=== PATIENT | female | born 1965 | race Caucasian/White ===

== ENCOUNTER 2018-02-16 04:48 | Emergency (ER) | payer BC, OTHER ==
[2018-02-16] MEDS ORDERED: KETOROLAC TROMETHAMINE 60 MG/2 ML SDV IM ONE (05:16)
[2018-02-16] MEDS ORDERED: DIAZEPAM INJ 10 MG/2 ML DISP.SYRIN IV ONE (05:16)
--- NOTE | 2018-02-16 05:25 | ER Document Report ---
ED General - General Chief Complaint: Neck and Upper Back Pain Stated Complaint: FALL/NECK PAIN Time Seen by Provider: 02/16/18 05:15 Mode of Arrival: Ambulatory Information source: Patient Notes: Patient is a 52-year-old female who presents with complaints of stiff neck since Monday. Patient reports that she has been taking [id number] Motrin at home which has alleviated her symptoms intermittently. Patient reports that last night at about 1030 she slipped in her bathtub, did not fall but caught herself abruptly and ever since then she has been having worsening stiffness and pain in her neck. Patient denies any other symptoms such as fever or nausea and vomiting. Patient denies any past medical history. Past surgical history of 2 and endometriosis. TRAVEL OUTSIDE OF THE [place] IN LAST 30 DAYS: No - Related Data Allergies/Adverse Reactions: No Known Allergies Allergy (Unverified 02/16/18 04:55) Past Medical History - General Information source: Patient - Social History Smoking Status: Never Smoker Cigarette use (# per day): No Chew tobacco use (# tins/day): No Smoking Education Provided: No Frequency of alcohol use: None Drug Abuse: None Family History: Reviewed & Not Pertinent - Medical History Medical History: Negative Past Surgical History: Reports: Hx Section, Hx Gynecologic Surgery Review of Systems - Review of Systems Constitutional: No symptoms reported EENT: No symptoms reported Cardiovascular: No symptoms reported Respiratory: No symptoms reported Gastrointestinal: No symptoms reported Genitourinary: No symptoms reported Female Genitourinary: No symptoms reported Musculoskeletal: See HPI Skin: No symptoms reported Hematologic/Lymphatic: No symptoms reported Neurological/Psychological: No symptoms reported Physical Exam - Vital signs Vitals: Temp Pulse Resp BP Pulse Ox 97.7 F 72 18 143/84 H 96 02/16/18 04:54 02/16/18 04:54 02/16/18 04:54 02/16/18 04:54 02/16/18 04:54 - Notes Notes: PHYSICAL EXAMINATION: GENERAL: Well-appearing, well-nourished and in no acute distress. HEAD: Atraumatic, normocephalic. EYES: Pupils equal round and reactive to light, extraocular movements intact, conjunctiva are normal. ENT: Nares patent, oropharynx clear without exudates. Moist mucous membranes. NECK: Normal range of motion, supple without lymphadenopathy LUNGS: Breath sounds clear to auscultation bilaterally and equal. No wheezes rales or rhonchi. HEART: Regular rate and rhythm without murmurs ABDOMEN: Soft, nontender, nondistended abdomen. No guarding, no rebound. No masses appreciated. Female : deferred Musculoskeletal: Limited cervical ROM. NEUROLOGICAL: Cranial nerves grossly intact. Normal speech, normal gait. Normal sensory, motor exams PSYCH: Normal mood, normal affect. SKIN: Warm, Dry, normal turgor, no rashes or lesions noted. Course - Re-evaluation Re-evalutation: 52-year-old female with complaints of stiff neck since Monday. This was made worse after she slipped last night and bathtub and caught herself abruptly. Patient denies any actual fall, denies hitting her head on anything. Patient has had no fever or any other concerning symptoms for infectious process. Likely musculoskeletal strain. Will administer IM Valium and IM Toradol and will reassess. - Vital Signs Vital signs: Temp Pulse Resp BP Pulse Ox 97.7 F 72 18 143/84 H 96 02/16/18 04:54 02/16/18 04:54 02/16/18 04:54 02/16/18 04:54 02/16/18 04:54
--- NOTE | 2018-02-16 06:37 | ER Document Report ---
ED Neck/Back Problem - General Chief Complaint: Neck and Upper Back Pain Stated Complaint: FALL/NECK PAIN Time Seen by Provider: 02/16/18 05:15 Mode of Arrival: Ambulatory Information source: Patient Notes: Patient is a 52-year-old female who presents with chief complaint of neck stiffness since Monday. Patient reports that last night she slipped in the bathtub and although she did not fall she did catch herself and she feels that she exacerbated her already stiff neck. Patient reports that she has been taking ibuprofen which has helped with the pain however since she slipped last night she states that the pain in her neck is much worse. Patient denies any fevers nausea vomiting chills or any other symptoms. Patient denies any past medical history. TRAVEL OUTSIDE OF THE [place] IN LAST 30 DAYS: No - Related Data Allergies/Adverse Reactions: No Known Allergies Allergy (Unverified 02/16/18 04:55) Past Medical History - General Information source: Patient - Social History Smoking Status: Never Smoker Frequency of alcohol use: None Family History: Reviewed & Not Pertinent Patient has suicidal ideation: No Patient has homicidal ideation: No Renal/ Medical History: Denies: Hx Peritoneal Dialysis Past Surgical History: Reports: Hx Section, Hx Gynecologic Surgery Review of Systems - Review of Systems Constitutional: No symptoms reported EENT: No symptoms reported Cardiovascular: No symptoms reported Respiratory: No symptoms reported Gastrointestinal: No symptoms reported Genitourinary: No symptoms reported Female Genitourinary: No symptoms reported Musculoskeletal: See HPI Skin: No symptoms reported Hematologic/Lymphatic: No symptoms reported Neurological/Psychological: No symptoms reported Physical Exam - Vital signs Vitals: Temp Pulse Resp BP Pulse Ox 97.7 F 72 18 143/84 H 96 02/16/18 04:54 02/16/18 04:54 02/16/18 04:54 02/16/18 04:54 02/16/18 04:54 - Notes Notes: PHYSICAL EXAMINATION: GENERAL: Well-appearing, well-nourished and in no acute distress. HEAD: Atraumatic, normocephalic. EYES: Pupils equal round and reactive to light, extraocular movements intact, conjunctiva are normal. ENT: Nares patent, oropharynx clear without exudates. Moist mucous membranes. NECK: Normal range of motion, supple without lymphadenopathy LUNGS: Breath sounds clear to auscultation bilaterally and equal. No wheezes rales or rhonchi. HEART: Regular rate and rhythm without murmurs ABDOMEN: Soft, nontender, nondistended abdomen. No guarding, no rebound. No masses appreciated. Female : deferred Musculoskeletal: Limited range of motion to neck, no pitting or edema. No cyanosis. NEUROLOGICAL: Cranial nerves grossly intact. Normal speech, normal gait. Normal sensory, motor exams PSYCH: Normal mood, normal affect. SKIN: Warm, Dry, normal turgor, no rashes or lesions noted. Course - Re-evaluation Re-evalutation: Patient has had neck pain/stiffness since Monday. Patient denies any fever or chills therefore unlikely that this is a an infectious cause. Patient's history of present illness suggestive of musculoskeletal strain/spasm. Will administer IM Valium and IM Toradol and reassess. Patient stiffness and range of motion have improved since administration of medications. Patient will be discharged on muscle relaxers and pain medications. Patient has a soft collar that her purchased at the drugstore. Patient told that she can use this if it helps with her comfort. Patient will also be using moist heat intermittently. Patient agrees to call her primary care provider today to set up an appointment for next week. Patient understands that this may not resolve quickly and may take several days to weeks to completely resolve. - Vital Signs Vital signs: Temp Pulse Resp BP Pulse Ox 97.7 F 72 18 143/84 H 96 02/16/18 04:54 02/16/18 04:54 02/16/18 04:54 02/16/18 04:54 02/16/18 04:54 Discharge - Discharge Clinical Impression: Muscle spasms of neck Condition: Stable Disposition: HOME, SELF-CARE Additional Instructions: Please take medications as directed for your muscle strain. I would suggest calling your primary care provider this morning to make an appointment for early next week. Do not drive while taking the medications, as we discussed please notate the labels on the bottle by the pharmacist. You may use moist heat and your neck collar that you have for additional support. Return to the emergency department if you do not start to show improvement in the next 2-3 days. Prescriptions: Diazepam [Valium 5 mg Tablet] 5 - 10 mg PO QIDP PRN #20 tablet PRN Reason: Muscle Spasms Methocarbamol [Robaxin 750 mg Tablet] 750 mg PO ASDIR PRN #40 tablet PRN Reason: Oxycodone HCl [Oxycontin Ir 5 Mg Tablet] 1 - 2 mg PO Q4H PRN #15 tablet PRN Reason: For Pain
[2018-02-16] MEDS ORDERED: HYDROCODONE/ACETAMINOPHEN 5-325 MG (6 TAB/ER DISP) PO PRN (06:38)
[2018-02-16 07:18] VITALS: BP 112/75
== END 2018-02-16 07:00 | disposition home or self-care (01) ==
LOC: ER 04:48
DX: S13.4XXA Sprain of ligaments of cervical spine, initial encounter (principal); M62.838 Other muscle spasm; W18.40XA Slipping, tripping and stumbling without falling, unspecified, initial encounter; Y93.89 Activity, other specified
CPT/HCPCS: 99283; 96372; 96374; J3360; J1885